=== PATIENT | male | born 1950 | race Caucasian/White ===

== ENCOUNTER → 2017-05-26 | Outpatient (CLI) | payer MEDICARE, OTHER ==
[~2017-05-26] MED LIST: ASPIR 8181 M1 PO; LOPERAMIDE2 M1 PO; ZEGERID20 MG PO
== END | disposition home or self-care (01) ==
LOC: CDC 10:03
DX: D21.11 Benign neoplasm of connective and other soft tissue of right upper limb, including shoulder (principal); R94.31 Abnormal electrocardiogram [ECG] [EKG]
CPT/HCPCS: 93000

== ENCOUNTER → 2018-06-29 | Outpatient (CLI) | payer MEDICARE, OTHER | END | disposition home or self-care (01) | LOC: CDC 09:36 | DX: Z01.810 Encounter for preprocedural cardiovascular examination (principal); I45.10 Unspecified right bundle-branch block; R94.31 Abnormal electrocardiogram [ECG] [EKG] | CPT/HCPCS: 93000 ==